=== PATIENT | female | born 1960 | race Caucasian/White ===

== ENCOUNTER 2018-05-17 15:47 | Emergency (ER) | payer BC ==
[2018-05-17 15:54] VITALS: BP 127/83
--- NOTE | 2018-05-17 16:16 | ED ---
HPI Cardiac - HPI Summary HPI Summary: onset of shortness of breath at work with associated sense of palpitations, denies chest pain . - History of Current Complaint Chief Complaint: UCRespiratory Stated Complaint: SOB/BP Time Seen by Provider: 05/17/18 16:08 Hx Obtained From: Patient Onset/Duration: Started Hours Ago Timing: Intermittent Initial Severity: Moderate Pain Intensity: 0 Aggravating Factor(s): Exertion Alleviating Factor(s): Rest Associated Signs and Symptoms: Positive: Shortness of Breath - Risk Factors Pulmonary Embolism Risk Factors: Negative Cardiac Risk Factors: Hypertension, Smoking, Elevated Lipids - Allergy/Home Medications Allergies/Adverse Reactions: Allergies Allergy/AdvReac Type Severity Reaction Status Date / Time No Known Allergies Allergy Verified 05/17/18 15:48 Home Medications: Home Medications Blood Pressure Med 1 tab DAILY 05/17/18 [History Confirmed 05/17/18] PMH/Surg Hx/FS Hx/Imm Hx Previously Healthy: Yes - stopped smoking 12 years ago, hx. of hypertension Cardiovascular History: Reports: Hx Hypertension Infectious Disease History: No Infectious Disease History: Denies: Traveled Outside the [place] in Last 30 Days - Social History Alcohol Use: None Substance Use Type: Reports: None Smoking Status (MU): Never Smoked Tobacco Review of Systems Genitourinary: Negative Positive: no symptoms reported Musculoskeletal: Negative Skin: Negative Neurological: Negative Psychological: Normal All Other Systems Reviewed And Are Negative: Yes Physical Exam Triage Information Reviewed: Yes Vital Signs On Initial Exam: Initial Vitals Temp Pulse Resp BP Pulse Ox 36.3 C 87 18 127/83 99 05/17/18 15:49 05/17/18 15:49 05/17/18 15:49 05/17/18 15:49 05/17/18 15:49 Vital Signs Reviewed: Yes Appearance: Positive: Well-Appearing, No Pain Distress Skin: Positive: Warm Head/Face: Positive: Normal Head/Face Inspection Eyes: Positive: Normal ENT: Positive: Normal ENT inspection Neck: Positive: Other: - positive JVD at 30 degrees in bed Respiratory/Lung Sounds: Positive: Clear to Auscultation Cardiovascular: Positive: Normal, RRR Abdomen Description: Positive: Nontender Bowel Sounds: Positive: Present Musculoskeletal: Positive: Normal Diagnostics - Vital Signs Vital Signs Temp Pulse Resp BP Pulse Ox 05/17/18 15:49 36.3 C 87 18 127/83 99 - Laboratory Lab Statement: Any lab studies that have been ordered have been reviewed, and results considered in the medical decision making process. Disposition - Diagnoses Provider Diagnoses: Dyspnea and respiratory abnormalities Discharge - Sign-Out/Discharge Documenting (check all that apply): Patient Departure - advised to go to [place] [facility] - Discharge Plan Condition: Stable Disposition: HOME-RECOMMEND TO ED Additional Instructions: patient advised to go directly to the ER because of sudden onset of shortness of breath even with normal EKG - Billing Disposition and Condition Condition: STABLE Disposition: Home-Recommend to ED
== END 2018-05-17 16:26 | disposition home health service (06) ==
LOC: UCCORT 15:47
DX: R06.00 Dyspnea, unspecified (principal); R06.02 Shortness of breath; R00.2 Palpitations; I10 Essential (primary) hypertension; Z87.891 Personal history of nicotine dependence
CPT/HCPCS: 93005; 99201; G0463

== ENCOUNTER 2019-03-23 10:17 | Emergency (ER) | payer BC, OTHER ==
[2019-03-23 10:42] VITALS: BP 148/91
--- NOTE | 2019-03-23 11:14 | UC ---
[facility] General HPI - HPI Summary HPI Summary: increasing pain to the front of L knee x 2 months. + mild swelling. admits to knee feeling like it locks on occasion. prior surgery for a meniscus tear by RMP. no acute injury. - History of Current Complaint Chief Complaint: UCLowerExtremity Stated Complaint: LEFT KNEE PAIN (W/C) Time Seen by Provider: 03/23/19 10:59 Hx Obtained From: Patient Onset/Duration: Gradual Onset Timing: Constant Pain Intensity: 10 Aggravating: movement Associated Signs & Symptoms: Negative: Fever - Allergy/Home Medications Allergies/Adverse Reactions: Allergies Allergy/AdvReac Type Severity Reaction Status Date / Time No Known Allergies Allergy Verified 03/23/19 10:42 Home Medications: Home Medications Aspirin [Aspirin Childrens 81 MG] 1 tab DAILY 03/23/19 [History Confirmed ] Cholecalciferol TAB* [Vitamin D TAB*] 2,000 units PO DAILY 03/23/19 [History Confirmed 03/23/19] Prebiotic/Probiotic 1 tab DAILY 03/23/19 [History Confirmed 03/23/19] Ranitidine TAB (NF) [Zantac TAB (NF)] 150 mg PO DAILY 03/23/19 [History Confirmed 03/23/19] amLODIPine TAB* [Norvasc 5 mg TAB*] 5 mg PO DAILY 03/23/19 [History Confirmed ] PMH/Surg Hx/FS Hx/Imm Hx Cardiovascular History: Hypertension GI/ History: Gastroesophageal Reflux - Surgical History Surgical History: Yes Surgery Procedure, Year, and Place: . left wrist-ganglion. left knee arthroscopy - Family History Known Family History: Positive: Non-Contributory - Social History Occupation: Employed Full-time Alcohol Use: None Substance Use Type: None Smoking Status (MU): Never Smoked Tobacco - Immunization History Vaccination Up to Date: Yes Review of Systems All Other Systems Reviewed And Are Negative: No Constitutional: Negative: Fever Skin: Negative: Rash Motor: Negative: Decreased ROM Musculoskeletal: Positive: Edema - L knee Neurological: Negative: Weakness, Paresthesia, Numbness Physical Exam Triage Information Reviewed: Yes Appearance: Well-Appearing Vital Signs: Initial Vital Signs Temp 98.5 F 03/23/19 10:37 Pulse 73 03/23/19 10:37 Resp 16 03/23/19 10:37 BP 148/91 03/23/19 10:37 Pulse Ox 98 03/23/19 10:37 Vital Signs Reviewed: Yes Eyes: Positive: Conjunctiva Clear Respiratory: Positive: No respiratory distress Cardiovascular: Positive: RRR Musculoskeletal: Positive: Other: - LLE: hip without deformity or tenderness. Mild swelling L anterior knee with tenderness over anterior knee and medial joint line. No patellar grind and patella not ballotable. No knee laxity. Lower leg non tender and the entire leg has gross s/v/m function. Neurological: Positive: Alert Psychological: Positive: Age Appropriate Behavior Skin Exam: Normal Skin: Negative: Rashes Diagnostics - Radiology No standard instances Radiology Interpretation Completed By: Radiologist - IMPRESSION: No fracture of the left knee is noted. There may BE early degenerative changes in the medial compartment of left knee. Course/Dx - Course Course Of Treatment: PT DECLINED CRUTHCES. - Differential Dx - Multi-Symptom Differential Diagnoses: Other - no concern for fx or infection. possible meniscus tear. - Diagnoses Provider Diagnosis: Knee pain, left anterior Discharge - Sign-Out/Discharge Documenting (check all that apply): Patient Departure All imaging exams completed and their final reports reviewed: Yes - Discharge Plan Condition: Stable Disposition: HOME Prescriptions: Naproxen [Naprosyn 500 mg tab] 500 mg PO BID 5 Days #10 tablet Patient Education Materials: Knee Pain (ED), Swollen Knee Joint (ED) Referrals: Rafia Romero MD [Primary Care Provider] - Additional Instructions: FOLLOW UP WITH YOUR ORTHOPEDIST AT [facility] SOON POSSIBLE. CALL THEM IN THE AM. WEAR THE YEYO DURING THE DAY AND REMOVE FOR BEDTIME. - Billing Disposition and Condition Condition: STABLE Disposition: Home
== END 2019-03-23 11:53 | disposition home or self-care (01) ==
LOC: UCCORT 10:17
DX: M25.562 Pain in left knee (principal); M25.462 Effusion, left knee; I10 Essential (primary) hypertension; K21.9 Gastro-esophageal reflux disease without esophagitis; Z79.899 Other long term (current) drug therapy; Z79.82 Long term (current) use of aspirin
CPT/HCPCS: 99212; G0463